=== PATIENT | female | born 1950 | race African-American/Black ===

== ENCOUNTER 2017-06-10 07:47 | Emergency (ER) | payer MEDICARE, OTHER ==
[~2017-06-10] VITALS: Ht 177.8 cm; Wt 78.0 kg
[~2017-06-10 07:47] MED LIST: PSEU-259 PO
[2017-06-10 08:03] VITALS: BP 140/89
[2017-06-10] MEDS ORDERED: PAT0.1OS OP (08:33)
[2017-06-10] MEDS ORDERED: FLUT16SP2 BOTHNARES (08:33)
[2017-06-10] MEDS ORDERED: triamcinolone acetonide 40mg/ml inj IM ONE (08:35)
== END 2017-06-10 08:50 | disposition home or self-care (01) ==
LOC: ER 07:47
DX: J30.9 Allergic rhinitis, unspecified (principal); H10.13 Acute atopic conjunctivitis, bilateral; Z79.899 Other long term (current) drug therapy
CPT/HCPCS: 96372; 99283; J3301